=== PATIENT | female | born 1975 | race Caucasian/White ===

== ENCOUNTER 2018-07-18 22:15 | Emergency (ER) | payer MEDICAID ==
[2018-07-18 22:21] VITALS: BP 150/98; PULSE 92; RESP 16; TEMP 98.3; O2SAT 98
[2018-07-18] MEDS ORDERED: Simethicone 80 mg Chewtab PO STA (23:02)
[2018-07-18] MEDS ORDERED: Iohexol 240 (50 ml) PO ONE (23:05)
[2018-07-18] MEDS ORDERED: Iohexol 240 (50 ml) ONE (23:14)
--- NOTE | 2018-07-18 23:17 | ED PDOC ---
HPI: Abdomen Time Seen by Provider: 07/18/18 22:56 Chief Complaint (Nursing): Abdominal Pain Chief Complaint (Provider): abdominal pain History Per: Patient History/Exam Limitations: no limitations Onset/Duration Of Symptoms: Days (x1) Current Symptoms Are (Timing): Still Present Associated Symptoms: Vomiting, Diarrhea, Back Pain (right upper back). denies: Fever, Chills, Urinary Symptoms Additional Complaint(s): Jolene Ivy is a 42 year old female, with a past medical history of HTN and 20lbs ovarian cyst removal x1 year ago, who presents to the emergency department for evaluation of abdominal pain onset for x1 day. Patient states yesterday she started developing pain across her right abdomen into right flank and right upper back. Patient also reports feeling bloated and gassy. She had a normal bowel movement this morning but started having looser bowel movements. She reports vomiting more times that she could count which she describes as non bloody and non bilious. She denies any fever, chills, chest pain, shortness of breath or urinary symptoms. No further medical complaints. PMD: None provided. Past Medical History Reviewed: Historical Data, Nursing Documentation, Vital Signs Vital Signs: Last Vital Signs Temp 98.3 F 07/18/18 22:18 Pulse 92 H 07/18/18 22:18 Resp 16 07/18/18 22:18 BP 150/98 H 07/18/18 22:18 Pulse Ox 98 07/19/18 02:57 - Medical History PMH: Asthma, HTN, Hypercholesterolemia, Rheumatoid Arthritis, Sleep Apnea Denies: Chronic Kidney Disease - Surgical History Surgical History: Cholecystectomy Other surgeries: 20lbs ovarian cyst removal - Family History Family History: States: Unknown Family Hx - Immunization History Hx Tetanus Toxoid Vaccination: No Hx Influenza Vaccination: No Hx Pneumococcal Vaccination: No - Home Medications Home Medications: Ambulatory Orders Medication Instructions Recorded Losartan/Hydrochlorothiazide 100 tab PO DAILY 08/15/14 [Hyzaar 100-25 Tablet] Metoprolol 50 mg PO DAILY 11/25/16 Penicillin VK [Penicillin VK Tab] 500 mg PO Q6H #28 tab 05/13/18 - Allergies Allergies/Adverse Reactions: Allergies Allergy/AdvReac Type Severity Reaction Status Date / Time diazepam [From Valium] Allergy Severe ANGIOEDEMA Verified 07/18/18 22:18 Review of Systems ROS Statement: Except As Marked, All Systems Reviewed And Found Negative Constitutional: Negative for: Fever, Chills Cardiovascular: Negative for: Chest Pain Respiratory: Negative for: Shortness of Breath Gastrointestinal: Positive for: Vomiting, Abdominal Pain, Diarrhea Genitourinary Female: Negative for: Dysuria, Frequency, Incontinence Physical Exam - Reviewed Nursing Documentation Reviewed: Yes Vital Signs Reviewed: Yes - Physical Exam Appears: Positive for: Uncomfortable Head Exam: Positive for: ATRAUMATIC, NORMAL INSPECTION, NORMOCEPHALIC Skin: Positive for: Normal Color, Warm, Dry Eye Exam: Positive for: Normal appearance, EOMI, PERRL Neck: Positive for: Painless ROM Cardiovascular/Chest: Positive for: Regular Rate, Rhythm. Negative for: Murmur Respiratory: Positive for: Normal Breath Sounds. Negative for: Respiratory Distress Gastrointestinal/Abdominal: Positive for: Tenderness (diffused tenderness with minimal palpation to right and left upper quadrants and epigastrium), Distended , Other (midline surgical scar) Back: Positive for: Normal Inspection Extremity: Positive for: Normal ROM (upper and lower extremities). Negative for : Deformity, Swelling Neurologic/Psych: Positive for: Alert, Oriented - Laboratory Results Result Diagrams: 07/18/18 23:30 07/18/18 23:30 - ECG O2 Sat by Pulse Oximetry: 98 (RA) Pulse Ox Interpretation: Normal Medical Decision Making Medical Decision Making: Time: 22:56 A/P: 42 y/o female with history of HTN and recent abdominal surgery presents with abdominal pain, nausea, vomit and diarrhea. Patient appears uncomfortable. Differential diagnosis includes gastroenteritis vs colitis vs diverticulitis vs complication of surgery. Initial Plan: --Abdomen & Pelvis PO & IV Contrast [CT] --CMP --Lipase --Urine --CBC w/ differential --Mylicon Chew Tab 80 mg PO --Omnipaque 250 50 ml PO --Toradol 30 mg IVP --Zofran Inj 4 mg IVP --Urinalysis --reevaluation 01:40 -Patient states she feels much better. Still drinking contrast for CT. 02:53 -This patient is choosing to leave against medical advice. The provider has personally explained to the pt that choosing to do so may result in permanent bodily harm or . The provider discussed at great length that without further evaluation and monitoring there may be unforeseen circumstances and/or deterioration causing permanent bodily harm or as a result of their choice. The pt verbalized these risks back to the physician in laymans terms. The pt is alert , oriented, and shows the mental capacity to make clear decisions regarding the pts health care at this time. The pt continues to wish to leave against medical advice. In light of the pts decision to leave AMA, follow-up has been arranged and the pt is aware of the importance of following up as instructed. The pt has been advised that they should return to the ED immediately if they change their mind at any time, or if their condition begins to change or worsen in any way. ----- Scribe Attestation: Documented by Max Sharma, acting as a scribe for Emre Calderon MD. Provider Scribe Attestation: All medical record entries made by the Scribe were at my direction and personally dictated by me. I have reviewed the chart and agree that the record accurately reflects my personal performance of the history, physical exam, medical decision making, and the department course for this patient. I have also personally directed, reviewed, and agree with the discharge instructions and disposition. Disposition - Clinical Impression Clinical Impression: Abdominal pain in female - Disposition Referrals: Teresa Garcia MD [Family Provider] - Disposition: Against Medical Advice Disposition Time: 02:53 Condition: STABLE Instructions: Nausea and Vomiting, Adult (DC), Leaving Against Medical Advice Forms: [employer] (Romanian)
[2018-07-18 23:39] LABS: BASO # 0.1 K/uL (0.0-0.2); BASO % 0.5 % (0.0-2.0); EOS # 0.1 K/uL (0.0-0.7); EOS % 0.9 % (0.0-4.0); HEMOGLOBIN 13.8 g/dL (12.0-16.0); LYMPH % 22.6 % (20.0-40.0); MEAN CELL VOLUME 84.3 fl (81.0-99.0); MEAN CORPUSCULAR HEMOGLOBIN 28.1 pg (27.0-31.0); MEAN CORPUSCULAR HGB CONC 33.3 g/dL (33.0-37.0); MEAN PLATELET VOLUME 8.1 fl (7.2-11.7); MONO # 0.8 K/uL (0.0-0.8); MONO % 6.4 % (0.0-10.0); NEUT # 9.3 K/uL (1.8-7.0); NEUT % 69.6 % (50.0-75.0); RBC 4.93 Mil/uL (3.80-5.20); RED CELL DISTRIBUTION WIDTH 14.7 % (11.5-14.5); WHITE BLOOD COUNT 13.3 K/uL (4.8-10.8)
[2018-07-18 23:57] LABS: SQUAMOUS EPITHIAL 3 /hpf (0-5); URINE BILIRUBIN NEGATIVE (NEGATIVE); URINE BLOOD NEGATIVE (NEGATIVE); URINE CLARITY SLIGHTY-CLOUDY (Clear); URINE COLOR YELLOW (YELLOW); URINE GLUCOSE (UA) NEG (Normal); URINE LEUKOCYTE ESTERASE NEG Leu/uL (Negative); URINE PROTEIN 30 mg/dL (NEGATIVE); URINE UROBILINOGEN 0.2-1.0 mg/dL (0.2-1.0)
[2018-07-19 00:02] LABS: ALB/GLOB RATIO 1.2 (1.0-2.1); ALT/SGPT 57 U/L (9-52); AST/SGOT 40 U/L (14-36); BLOOD UREA NITROGEN 11 mg/dl (7-17); GFR NON-AFRICAN AMERICAN > 60; LIPASE 119 U/L (23-300)
[2018-07-19] MEDS ORDERED: Iohexol 300 100 ML IJ ONE (02:24)
[2018-07-19] MEDS ORDERED: Sodium Chloride 0.9% 50 ML IV ONE (02:25)
== END 2018-07-19 03:00 | disposition left against medical advice (07) ==
LOC: H.ER 22:15
DX: R10.9 Unspecified abdominal pain (principal); R11.10 Vomiting, unspecified; R19.7 Diarrhea, unspecified; E78.00 Pure hypercholesterolemia, unspecified; I10 Essential (primary) hypertension
CPT/HCPCS: 80053; 81003; 81025; 83690; 85025; 96374; 96375; 99284; J1885; J2405; Q9966; Q9967

== ENCOUNTER 2018-08-20 12:02 | Emergency (ER) | payer MEDICAID ==
[2018-08-20 12:03] VITALS: BMI 34.7
[2018-08-20 12:23] VITALS: O2SAT 98
[2018-08-20] MEDS ORDERED: Albuterol-Ipratrop 3 mg / 0.5 (3 ml) UD INH STA (12:41)
[2018-08-20] MEDS ORDERED: Albuterol-Ipratrop 3 mg / 0.5 (3 ml) UD IH STA (12:41)
--- NOTE | 2018-08-20 13:01 | ED PDOC ---
HPI: SOB/CHF/COPD Time Seen by Provider: 08/20/18 12:31 Chief Complaint (Nursing): Cough, Cold, Congestion Chief Complaint (Provider): Cough, Shortness of Breath History Per: Patient History/Exam Limitations: no limitations Onset/Duration Of Symptoms: Days (x1) Current Symptoms Are (Timing): Still Present Additional Complaint(s): 43 year old female, with a past medical history of asthma and sleep apnea, presenting for evaluation of cough, chest tightness, dizziness and difficulty breathing that worsened today. Patient states she feels like there is phlegm in her chest, but the cough is dry and productive of no sputum. Patient states she was seen at [facility] for same 08/15/2018 and diagnosed with bronchitis. Patient states she was given Prednisone, albuterol, 2x nebulizers and Tessalon Perles with relief of symptoms. Patient states her medication ran out yesterday and her symptoms worsened, prompting her to present to the ED. Patient otherwise denies any fever, chills, nausea, vomiting, headache, chest pain, or urinary complaints. Past Medical History Reviewed: Historical Data, Nursing Documentation, Vital Signs Vital Signs: Last Vital Signs Temp 98.0 F 08/20/18 12:20 Pulse 105 H 08/20/18 12:20 Resp 16 08/20/18 12:20 BP 129/95 H 08/20/18 12:20 Pulse Ox 98 08/20/18 12:20 - Medical History PMH: Asthma, HTN, Hypercholesterolemia, Rheumatoid Arthritis, Sleep Apnea Denies: Chronic Kidney Disease - Surgical History Surgical History: Cholecystectomy - Family History Family History: States: Unknown Family Hx - Immunization History Hx Tetanus Toxoid Vaccination: No Hx Influenza Vaccination: No Hx Pneumococcal Vaccination: No - Home Medications Home Medications: Ambulatory Orders Medication Instructions Recorded Losartan/Hydrochlorothiazide 100 tab PO DAILY 08/15/14 [Hyzaar 100-25 Tablet] Albuterol HFA [Ventolin HFA 90 2 puff IH [id number] #1 inhaler 08/14/18 mcg/actuation (8 g)] Benzonatate [Tessalon Perles] 100 mg PO TID #20 sgl 08/14/18 Cetirizine HCl [Zyrtec] 10 mg PO DAILY #20 capsule 08/14/18 Metoprolol Tartrate 50 mg PO DAILY 08/14/18 amLODIPine [Norvasc] 10 mg PO DAILY 08/14/18 predniSONE [Prednisone] 40 mg PO DAILY #8 tab 08/14/18 Albuterol Sulfate [Proair Hfa] 0.09 mg IH Q6H PRN #2 inh 08/20/18 Benzonatate [Tessalon Perles] 100 mg PO BID PRN 5 Days sgl 08/20/18 Ibuprofen [Motrin] 600 mg PO TID 7 Days tab 08/20/18 predniSONE [predniSONE Tab] 20 mg PO BID 5 Days tab 08/20/18 - Allergies Allergies/Adverse Reactions: Allergies Allergy/AdvReac Type Severity Reaction Status Date / Time diazepam [From Valium] Allergy Severe ANGIOEDEMA Verified 08/20/18 12:20 Review of Systems ROS Statement: Except As Marked, All Systems Reviewed And Found Negative Constitutional: Negative for: Fever, Chills ENT: Positive for: Nose Pain, Nose Discharge, Nose Congestion Cardiovascular: Negative for: Chest Pain Respiratory: Positive for: Cough, Shortness of Breath. Negative for: Sputum Gastrointestinal: Negative for: Nausea, Vomiting, Abdominal Pain, Diarrhea Neurological: Positive for: Dizziness. Negative for: Headache Physical Exam - Reviewed Nursing Documentation Reviewed: Yes Vital Signs Reviewed: Yes - Physical Exam Appears: Positive for: Non-toxic, No Acute Distress Head Exam: Positive for: ATRAUMATIC, NORMAL INSPECTION, NORMOCEPHALIC Skin: Positive for: Normal Color, Warm, Dry. Negative for: Rash Eye Exam: Positive for: EOMI, Normal appearance, PERRL ENT: Positive for: Nasal Congestion Neck: Positive for: Normal, Painless ROM, Supple Cardiovascular/Chest: Positive for: Regular Rate, Rhythm. Negative for: Murmur Respiratory: Positive for: Decreased Breath Sounds, Wheezing (trace end expiration b/l). Negative for: Accessory Muscle Use Gastrointestinal/Abdominal: Positive for: Normal Exam, Soft. Negative for: Tenderness Back: Positive for: Normal Inspection. Negative for: L CVA Tenderness, R CVA Tenderness Extremity: Positive for: Normal ROM. Negative for: Tenderness, Pedal Edema Neurologic/Psych: Positive for: Alert, Oriented. Negative for: Motor/Sensory Deficits - ECG O2 Sat by Pulse Oximetry: 98 (RA) Pulse Ox Interpretation: Normal - Progress ED Course And Treament: 1357: Stable. AAOx3. Feels better. Will give 1 more course of prednisone and albuterol. Fu with pcp. Medical Decision Making Medical Decision Makin Plan: -Duoneb 3mL INH x2 -Motrin 600mg PO -Tessalon Perles 100mg PO -Prednisone 60mg PO -Peak flow treatment -Reevaluation Scribe Attestation: Documented by Patrick Rendon, acting as a scribe for Carlos Howard MD. Provider Scribe Attestation: All medical record entries made by the Scribe were at my direction and personally dictated by me. I have reviewed the chart and agree that the record accurately reflects my personal performance of the history, physical exam, medical decision making, and the department course for this patient. I have also personally directed, reviewed, and agree with the discharge instructions and disposition. Disposition - Clinical Impression Clinical Impression: Bronchitis - Patient ED Disposition Is Patient to be Admitted: No Counseled Patient/Family Regarding: Studies Performed, Diagnosis, Need For Followup, Rx Given - Disposition Referrals: [facility] [Outside] - 08/21/18 Disposition: Routine/Home Disposition Time: 13:58 Condition: STABLE Additional Instructions: Return if not better in 3 days. Prescriptions: Albuterol Sulfate [Proair Hfa] 0.09 mg IH Q6H PRN #2 inh PRN Reason: Wheezing Benzonatate [Tessalon Perles] 100 mg PO BID PRN 5 Days sgl PRN Reason: Cough Ibuprofen [Motrin] 600 mg PO TID 7 Days tab predniSONE [predniSONE Tab] 20 mg PO BID 5 Days tab Instructions: Acute Bronchitis Forms: [facility] (Portuguese), [facility] ED School/Work Excuse
[2018-08-20] MEDS ORDERED: Albuterol-Ipratrop 3 mg / 0.5 (3 ml) UD ONE (13:03)
[2018-08-20 14:24] VITALS: BP 100/70; PULSE 74; RESP 20; TEMP 98
== END 2018-08-20 14:24 | disposition home or self-care (01) ==
LOC: H.ER 12:02
DX: J40 Bronchitis, not specified as acute or chronic (principal); E78.00 Pure hypercholesterolemia, unspecified; G47.30 Sleep apnea, unspecified; I10 Essential (primary) hypertension; M06.9 Rheumatoid arthritis, unspecified

== ENCOUNTER 2018-11-09 17:26 | Emergency (ER) | payer MEDICAID ==
[2018-11-09 17:26] VITALS: BMI 34.7
[2018-11-09] MEDS ORDERED: Oxycodone/Acetaminophen 5/325 mg Tab PO STA (18:02)
[2018-11-09 18:06] VITALS: RESP 18
[2018-11-09 19:04] VITALS: O2SAT 98
--- NOTE | 2018-11-09 19:26 | ED PDOC ---
HPI: Back Time Seen by Provider: 11/09/18 18:15 Chief Complaint (Nursing): Back Pain Chief Complaint (Provider): chronic back pain History Per: Patient History/Exam Limitations: no limitations Onset/Duration Of Symptoms: Hrs (four) Current Symptoms Are (Timing): Still Present Quality Of Discomfort: Unable To Describe, Dull, Aching, "Pain" Severity: None Previous Symptoms: Back Pain Additional Complaint(s): Pt presents to the ED with a chronic history of back pain and specifically sciatic pain. She complains of right sided back pain with radiation through her glutteus and to her right knee. Pt is morbidly obese and also a diabetic. She is hypertensive on presentation. Past Medical History Vital Signs: Last Vital Signs Temp 98.5 F 11/09/18 17:34 Pulse 87 11/09/18 19:04 Resp 18 11/09/18 19:04 BP 148/97 H 11/09/18 19:04 Pulse Ox 98 11/09/18 19:04 - Medical History PMH: Asthma, HTN, Hypercholesterolemia, Rheumatoid Arthritis, Sleep Apnea Denies: Chronic Kidney Disease - Surgical History Surgical History: Cholecystectomy - Family History Family History: States: Unknown Family Hx - Immunization History Hx Tetanus Toxoid Vaccination: No Hx Influenza Vaccination: No Hx Pneumococcal Vaccination: No - Home Medications Home Medications: Ambulatory Orders Medication Instructions Recorded Losartan/Hydrochlorothiazide 100 tab PO DAILY 08/15/14 [Hyzaar 100-25 Tablet] Albuterol HFA [Ventolin HFA 90 2 puff IH [id number] #1 inhaler 08/14/18 mcg/actuation (8 g)] Cetirizine HCl [Zyrtec] 10 mg PO DAILY #20 capsule 08/14/18 Metoprolol Tartrate 50 mg PO DAILY 08/14/18 amLODIPine [Norvasc] 10 mg PO DAILY 08/14/18 Ibuprofen [Motrin] 600 mg PO TID 7 Days tab 08/20/18 Loratadine [Claritin] 10 mg PO DAILY #10 tab 11/06/18 predniSONE [Prednisone] 20 mg PO BID #10 tab 11/06/18 Cyclobenzaprine [Flexeril] 10 mg PO TID #27 tab 11/09/18 - Allergies Allergies/Adverse Reactions: Allergies Allergy/AdvReac Type Severity Reaction Status Date / Time diazepam [From Valium] Allergy Severe ANGIOEDEMA Verified 11/06/18 00:15 Physical Exam - Reviewed Nursing Documentation Reviewed: Yes Vital Signs Reviewed: Yes - Physical Exam Appears: Positive for: Non-toxic, Uncomfortable Head Exam: Positive for: ATRAUMATIC Skin: Positive for: Normal Color, Warm, Dry Eye Exam: Positive for: Normal appearance Neck: Positive for: Normal, Painless ROM, Supple. Negative for: Decreased ROM Cardiovascular/Chest: Positive for: Regular Rate, Rhythm. Negative for: Chest Non Tender, Bradycardia, Tachycardia Respiratory: Positive for: Normal Breath Sounds. Negative for: Decreased Breath Sounds, Accessory Muscle Use, Crackles, Rales, Rhonchi, Stridor, Wheezing, Respiratory Distress Pulses-Carotid (L): 2+ Pulses-Carotid (R): 2+ Back: Positive for: Normal Inspection, L CVA Tenderness, R CVA Tenderness, Muscle Spasm (significant lumbosacral spasm) - ECG O2 Sat by Pulse Oximetry: 98 Medical Decision Making Medical Decision Making: lumbar spine negative pt treated with toradol, percocet 5mg and flexeril urged to follow up with PMD fft consult with pain managment specialist Disposition - Clinical Impression Clinical Impression: Back pain, Chronic back pain - Patient ED Disposition Is Patient to be Admitted: No Doctor Will See Patient In The: Office - Disposition Disposition Time: 19:41 Condition: STABLE Additional Instructions: Follow up with PMD for further referral to pain managment Prescriptions: Cyclobenzaprine [Flexeril] 10 mg PO TID #27 tab Instructions: Chronic Pain (DC), Chronic Pain Forms: [employer] (Upper Sorbian)
[2018-11-09 20:18] VITALS: BP 138/86; PULSE 89; TEMP 97.8
--- NOTE | 2018-11-10 11:12 | RAD ---
Date of service: 11/09/2018 PROCEDURE: Radiographs of the Lumbar Spine. HISTORY: severe back pain- lowr COMPARISON: No prior. FINDINGS: BONES: There is normal alignment of the lumbar vertebral bodies. There is normal lumbar lordosis. No acute fracture or spondylolysis. Bone mineralization is normal. DISC SPACES: There is mild degenerative disc disease at L4-5 and L5-S1 with anterior spurring, mild reduced disc heights and facet arthropathy, worse at L5-S1. OTHER FINDINGS: No pathologic soft tissue calcifications. Both sacroiliac joints are normal. Surgical clips in the right upper quadrant are related to prior cholecystectomy. IMPRESSION: No acute fracture, spondylolysis or spondylolisthesis. Mild degenerative disc disease at L4-5 and L5-S1, worse at L5-S1.
== END 2018-11-09 20:23 | disposition home or self-care (01) ==
LOC: H.ER 17:26
DX: M54.9 Dorsalgia, unspecified (principal)
CPT/HCPCS: 72114; 81025; 96372; 99283; J1885

== ENCOUNTER 2018-11-12 05:51 | Emergency (ER) | payer MEDICAID ==
[2018-11-12 05:52] VITALS: BMI 34.7
[2018-11-12] MEDS ORDERED: Albuterol 0.083% Inhal Sol (2.5 mg/3 mL) UD INH ONE (06:44)
[2018-11-12] MEDS ORDERED: Albuterol 0.083% Inhal Sol (2.5 mg/3 mL) UD ONE (06:51)
--- NOTE | 2018-11-12 06:51 | ED PDOC ---
HPI: Influenza Time Seen by Provider: 11/12/18 06:00 Chief Complaint: Cough, Cold, Congestion Chief Complaint (Provider): Cough, Chills History Per: Patient Exam Limitations: no limitations Onset/Duration Of Symptoms: Days (x1 week) Additional complaint(s):: 43 year old female with hx of asthma presents to the ED for evaluation of a cough productive of yellow/green phlegm associated with chills for the past week. At onset, patient went to [facility] where she was given prednisone, allergy medication, tesslon pearls, and albuterol, but she notes her symptoms have been worsening since discharge. Otherwise denies fever and diarrhea. PMD: Teresa Garcia Past Medical History Reviewed: Historical Data, Nursing Documentation, Vital Signs Vital Signs: Last Vital Signs Temp 98.7 F 11/12/18 06:18 Pulse 98 H 11/12/18 06:18 Resp 17 11/12/18 06:18 BP 162/110 H 11/12/18 06:18 Pulse Ox 99 11/12/18 06:18 - Medical History PMH: Asthma, HTN, Hypercholesterolemia, Rheumatoid Arthritis, Sleep Apnea Denies: Chronic Kidney Disease - Surgical History Surgical History: Cholecystectomy, Other surgeries: hysterectomy - Family History Family History: States: Unknown Family Hx - Social History Current smoker - smoking cessation education provided: No Alcohol: None Drugs: Denies - Immunization History Hx Tetanus Toxoid Vaccination: No Hx Influenza Vaccination: No Hx Pneumococcal Vaccination: No - Home Medications Home Medications: Ambulatory Orders Medication Instructions Recorded RX: Losartan/Hydrochlorothiazide 100 tab PO DAILY 08/15/14 [Hyzaar 100-25 Tablet] Cetirizine HCl [Zyrtec] 10 mg PO DAILY #20 capsule 08/14/18 RX: Albuterol HFA [Ventolin HFA 90 2 puff IH [id number] #1 inhaler 08/14/18 mcg/actuation (8 g)] RX: Metoprolol Tartrate 50 mg PO DAILY 08/14/18 amLODIPine [Norvasc] 10 mg PO DAILY 08/14/18 Ibuprofen [Motrin] 600 mg PO TID 7 Days tab 08/20/18 RX: Loratadine [Claritin] 10 mg PO DAILY #10 tab 11/06/18 predniSONE [Prednisone] 20 mg PO BID #10 tab 11/06/18 RX: Cyclobenzaprine [Flexeril] 10 mg PO TID #27 tab 11/09/18 Albuterol 0.083% [Albuterol 3 ml IH Q8 #1 neb 11/12/18 Sulfate 3 Ml] Promethazine/Codeine 5 ml PO Q8 #60 ml 11/12/18 [Codeine/Promethazine 10 MG/5 Ml-6.25 MG/5 Ml] RX: Non-Formulary 1 ea .ROUTE Q6 #1 ea 11/12/18 - Allergies Allergies/Adverse Reactions: Allergies Allergy/AdvReac Type Severity Reaction Status Date / Time diazepam [From Valium] Allergy Severe ANGIOEDEMA Verified 11/12/18 06:20 Review of Systems ROS Statement: Except As Marked, All Systems Reviewed And Found Negative Constitutional: Positive for: Chills. Negative for: Fever Respiratory: Positive for: Cough (productive of yellow/green phlegm) Gastrointestinal: Negative for: Diarrhea Physical Exam - Reviewed Nursing Documentation Reviewed: Yes Vital Signs Reviewed: Yes - Physical Exam Appears: Positive for: No Acute Distress Head Exam: Positive for: ATRAUMATIC, NORMOCEPHALIC Skin: Positive for: Normal Color, Warm Eye Exam: Positive for: Normal appearance ENT: Positive for: Normal ENT Inspection Neck: Positive for: Normal, Painless ROM, Supple Cardiovascular/Chest: Positive for: Regular Rate, Rhythm Respiratory: Positive for: Normal Breath Sounds. Negative for: Crackles, Rales, Rhonchi, Wheezing, Respiratory Distress Gastrointestinal/Abdominal: Positive for: Normal Exam, Soft. Negative for: Tenderness Extremity: Positive for: Normal ROM Neurologic/Psych: Positive for: Alert, Oriented (x3). Negative for: Motor/Sensory Deficits Medical Decision Making Medical Decision Making: Time: 642 Initial Impression: COUGH r/o pneumonia and flu Initial Plan: --CXR --Albuterol 2.5mg INH --Tylenol 650mg PO --Peak flow pre/post --Influenza A B Scribe Attestation: Documented by Lakshmi Bill acting as a scribe for Екатерина Zhou MD. Provider Scribe Attestation: All medical record entries made by the Scribe were at my direction and personally dictated by me. I have reviewed the chart and agree that the record accurately reflects my personal performance of the history, physical exam, medical decision making, and the department course for this patient. I have also personally directed, reviewed, and agree with the discharge instructions and disposition. - ECG O2 Sat by Pulse Oximetry: 99 (RA) Pulse Ox Interpretation: Normal Disposition - Clinical Impression Clinical Impression: Chronic cough, Upper respiratory infection - Patient ED Disposition Is Patient to be Admitted: Transfer of Care - Disposition Referrals: [facility] [Outside] Disposition: Transfer of Care Disposition Time: 07:00 Condition: FAIR Prescriptions: Albuterol 0.083% [Albuterol Sulfate 3 Ml] 3 ml IH Q8 #1 neb RX: Non-Formulary 1 ea .ROUTE Q6 #1 ea Promethazine/Codeine [Codeine/Promethazine 10 MG/5 Ml-6.25 MG/5 Ml] 5 ml PO Q8 #60 ml Instructions: Cough in Adults, Viral Upper Respiratory Infection, Adult (DC) Forms: [employer] (Telugu) Print Language: ENGLISH Patient Signed Over To: Benny Lozoya
--- NOTE | 2018-11-12 08:17 | RAD ---
Date of service: 11/12/2018 HISTORY: cough COMPARISON: 08/03/2015 TECHNIQUE: Chest PA and lateral FINDINGS: LUNGS: No active pulmonary disease. PLEURA: No significant pleural effusion identified. No pneumothorax apparent. CARDIOVASCULAR: There is absence of aortic atherosclerotic calcification on x-ray. Probable top-normal heart size. No pulmonary vascular congestion. OSSEOUS STRUCTURES: Thoracic spondylosis noted. VISUALIZED UPPER ABDOMEN: Normal. OTHER FINDINGS: None. IMPRESSION: No active disease. No interval pathology noted.
[2018-11-12 09:18] VITALS: RESP 18
--- NOTE | 2018-11-12 09:18 | ED PDOC ---
- ECG O2 Sat by Pulse Oximetry: 98 Medical Decision Making Medical Decision Making: CXR reveals no acute pathology. Flu neg Will dc home on albuterol and phenergan for cough Disposition - Clinical Impression Clinical Impression: Chronic cough, Upper respiratory infection - POA Present On Arrival: None - Disposition Referrals: [facility] [Outside] Disposition: Routine/Home Disposition Time: 09:16 Condition: FAIR Prescriptions: Albuterol 0.083% [Albuterol Sulfate 3 Ml] 3 ml IH Q8 #1 neb Non-Formulary 1 ea .ROUTE Q6 #1 ea Promethazine/Codeine [Codeine/Promethazine 10 MG/5 Ml-6.25 MG/5 Ml] 5 ml PO Q8 #60 ml Instructions: Viral Upper Respiratory Infection, Adult (DC), Cough in Adults Forms: [facility] (Sami) Print Language: KHMER
[2018-11-12 09:32] VITALS: BP 147/90; PULSE 88; TEMP 98.6
[2018-11-13 23:06] VITALS: O2SAT 99
--- NOTE | 2018-11-14 13:47 | CARD ---
APPROVED REPORT Date of service: 11/12/2018 EKG Measurement Heart [id number] <Conclusion> Normal sinus rhythm Incomplete right bundle branch block Otherwise normal ECG
== END 2018-11-12 09:33 | disposition home or self-care (01) ==
LOC: H.ER 05:51
DX: J06.9 Acute upper respiratory infection, unspecified (principal); E78.00 Pure hypercholesterolemia, unspecified; I10 Essential (primary) hypertension

== ENCOUNTER 2018-11-21 20:10 | Emergency (ER) | payer MEDICAID ==
[2018-11-21 20:10] VITALS: BMI 34.7
== END 2018-11-21 20:20 | disposition left against medical advice (07) ==
LOC: H.ER 20:10
DX: Z02.89 Encounter for other administrative examinations (principal)

== ENCOUNTER 2018-11-21 21:21 | Emergency (ER) | payer MEDICAID ==
[2018-11-21 21:21] VITALS: BMI 34.7
[2018-11-21 21:42] VITALS: TEMP 98.9
[2018-11-21] MEDS ORDERED: Fluconazole 150 MG TAB PO STA (22:32)
--- NOTE | 2018-11-21 22:36 | ED PDOC ---
HPI: Female Pain Time Seen by Provider: 11/21/18 22:05 Chief Complaint (Nursing): Female Genitourinary Chief Complaint (Provider): vaginal irritation History Per: Patient History/Exam Limitations: no limitations Onset/Duration Of Symptoms: Days (3) Current Symptoms Are (Timing): Still Present Additional Complaint(s): 43 y/o female presents for evaluation of vaginal irritation x 3 days. Patient reports itching and burning to vaginal area. Patient states she has been using a new toilet paper, unknown if related. Has been applying lubricant with little improvement. DEnies fever, nausea/vomiting, abdominal pain, pelvic pain, vaginal bleeding/discharge. Patient states she recently had both her ovaries removed and was told she may need to go on external hormone replacement. Past Medical History Reviewed: Historical Data, Nursing Documentation, Vital Signs Vital Signs: Last Vital Signs Temp 98.9 F 11/21/18 21:40 Pulse 106 H 11/21/18 21:40 Resp 20 11/21/18 21:40 BP 171/92 H 11/21/18 21:40 Pulse Ox 97 11/21/18 21:40 - Medical History PMH: Asthma, HTN, Hypercholesterolemia, Rheumatoid Arthritis, Sleep Apnea Denies: Chronic Kidney Disease - Surgical History Surgical History: Cholecystectomy, - Family History Family History: States: Unknown Family Hx - Immunization History Hx Tetanus Toxoid Vaccination: No Hx Influenza Vaccination: No Hx Pneumococcal Vaccination: No - Home Medications Home Medications: Ambulatory Orders Medication Instructions Recorded Losartan/Hydrochlorothiazide 100 tab PO DAILY 08/15/14 [Hyzaar 100-25 Tablet] Albuterol HFA [Ventolin HFA 90 2 puff IH [id number] #1 inhaler 08/14/18 mcg/actuation (8 g)] Cetirizine HCl [Zyrtec] 10 mg PO DAILY #20 capsule 08/14/18 Metoprolol Tartrate 50 mg PO DAILY 08/14/18 amLODIPine [Norvasc] 10 mg PO DAILY 08/14/18 Ibuprofen [Motrin] 600 mg PO TID 7 Days tab 08/20/18 Loratadine [Claritin] 10 mg PO DAILY #10 tab 11/06/18 predniSONE [Prednisone] 20 mg PO BID #10 tab 11/06/18 Cyclobenzaprine [Flexeril] 10 mg PO TID #27 tab 11/09/18 Albuterol 0.083% [Albuterol 3 ml IH Q8 #1 neb 11/12/18 Sulfate 3 Ml] Non-Formulary 1 ea .ROUTE Q6 #1 ea 11/12/18 Promethazine/Codeine 5 ml PO Q8 #60 ml 11/12/18 [Codeine/Promethazine 10 MG/5 Ml-6.25 MG/5 Ml] metFORMIN [glucOPHAGE] 500 mg PO BID #28 tab 11/22/18 - Allergies Allergies/Adverse Reactions: Allergies Allergy/AdvReac Type Severity Reaction Status Date / Time diazepam [From Valium] Allergy Severe ANGIOEDEMA Verified 11/21/18 21:40 Review of Systems ROS Statement: Except As Marked, All Systems Reviewed And Found Negative Genitourinary Female: Positive for: Rash Physical Exam - Reviewed Nursing Documentation Reviewed: Yes Vital Signs Reviewed: Yes - Physical Exam Appears: Positive for: Well, Non-toxic, No Acute Distress Cardiovascular/Chest: Positive for: Regular Rate, Rhythm Respiratory: Positive for: Normal Breath Sounds Gastrointestinal/Abdominal: Positive for: Normal Exam Pelvic Exam: Positive for: No Cerv. 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 Negative for: External Exam Normal (bilateral labia minora dry, erythematous. No excoriations, lesions, discharge noted), Active Bleeding, Blood, Cervicitis Extremity: Positive for: Normal ROM Neurologic/Psych: Positive for: Alert, Oriented - Laboratory Results Result Diagrams: 11/21/18 23:00 11/21/18 23:00 - ECG O2 Sat by Pulse Oximetry: 97 - Progress ED Course And Treament: -upreg -udip -diflucan PO glucose>1000 in urine; accucheck ordered accucheck 396: cbc cmp IV NS bolus ordered repeat Accucehck 389; second IV NS bolus ordered repeat accucheck 281 Patient educated on findings, rx Metformin provided Advised OTC A%D ointment for protective barrier/lubricant Follow up PMD and Dye Can Operator within 2-3 days Diet modification Return precautions given Disposition - Clinical Impression Clinical Impression: Vaginitis, Hyperglycemia - Patient ED Disposition Is Patient to be Admitted: No Counseled Patient/Family Regarding: Studies Performed, Diagnosis, Need For Followup - Disposition Disposition: Routine/Home Disposition Time: 22:40 Condition: IMPROVED Prescriptions: metFORMIN [glucOPHAGE] 500 mg PO BID #28 tab Instructions: Vaginitis, Hyperglycemia, Adult
[2018-11-21] MEDS ORDERED: Fluconazole 150 MG TAB PO ONE (22:39)
[2018-11-21] MEDS ORDERED: Sodium Chloride 0.9% 1,000 ML IV STA (22:47)
[2018-11-22 00:47] LABS: BASO # 0.1 K/uL (0.0-0.2); BASO % 1.2 % (0.0-2.0); EOS # 0.1 K/uL (0.0-0.7); EOS % 1.1 % (0.0-4.0); HEMOGLOBIN 14.8 g/dL (12.0-16.0); LYMPH # 3.5 K/uL (1.0-4.3); LYMPH % 35.7 % (20.0-40.0); MEAN CELL VOLUME 85.7 fl (81.0-99.0); MEAN CORPUSCULAR HEMOGLOBIN 28.8 pg (27.0-31.0); MEAN CORPUSCULAR HGB CONC 33.6 g/dL (33.0-37.0); MEAN PLATELET VOLUME 9.9 fl (7.2-11.7); MONO # 0.5 K/uL (0.0-0.8); MONO % 4.6 % (0.0-10.0); NEUT # 5.6 K/uL (1.8-7.0); NEUT % 57.4 % (50.0-75.0); NRBC % 0.1 % (0.0-0.0); RBC 5.12 Mil/uL (3.80-5.20); RED CELL DISTRIBUTION WIDTH 15.1 % (11.5-14.5); WHITE BLOOD COUNT 9.8 K/uL (4.8-10.8)
[2018-11-22 01:08] LABS: ALB/GLOB RATIO 1.3 (1.0-2.1); ALT/SGPT 60 U/L (9-52); AST/SGOT 36 U/L (14-36); BLOOD UREA NITROGEN 12 mg/dl (7-17); CALCIUM 9.5 mg/dL (8.4-10.2); GFR NON-AFRICAN AMERICAN > 60
[2018-11-22] MEDS ORDERED: Sodium Chloride 0.9% 1,000 ML IV STA (01:08)
[2018-11-22 01:27] VITALS: BP 155/95; PULSE 92; RESP 17
[2018-11-22 02:38] VITALS: O2SAT 97
== END 2018-11-22 02:53 | disposition home or self-care (01) ==
LOC: H.ER 21:21
DX: N76.0 Acute vaginitis (principal); R73.9 Hyperglycemia, unspecified; E78.00 Pure hypercholesterolemia, unspecified; I10 Essential (primary) hypertension
CPT/HCPCS: 80053; 81025; 82948; 85025; 96360; 99284; J7030

== ENCOUNTER 2019-02-16 00:32 | Emergency (ER) | payer MEDICAID ==
[2019-02-16 00:41] VITALS: BMI 35.1
[2019-02-16 00:46] VITALS: TEMP 99
[2019-02-16] MEDS ORDERED: Sodium Chloride 0.9% 1,000 ML IV STA (01:02)
[2019-02-16 01:40] LABS: BASO # 0.1 K/uL (0.0-0.2); BASO % 0.6 % (0.0-2.0); EOS % 0.2 % (0.0-4.0); HEMOGLOBIN 15.1 g/dL (12.0-16.0); LYMPH # 1.5 K/uL (1.0-4.3); LYMPH % 8.9 % (20.0-40.0); MEAN CELL VOLUME 84.8 fl (81.0-99.0); MEAN CORPUSCULAR HEMOGLOBIN 28.9 pg (27.0-31.0); MEAN CORPUSCULAR HGB CONC 34.1 g/dL (33.0-37.0); MONO # 0.4 K/uL (0.0-0.8); MONO % 2.4 % (0.0-10.0); NEUT # 15.1 K/uL (1.8-7.0); NEUT % 87.9 % (50.0-75.0); NRBC % 0.1 % (0.0-0.0); PLATELET COUNT 311 K/uL (130-400); RBC 5.21 Mil/uL (3.80-5.20); RED CELL DISTRIBUTION WIDTH 14.6 % (11.5-14.5); WHITE BLOOD COUNT 17.2 K/uL (4.8-10.8)
[2019-02-16 01:47] LABS: ALB/GLOB RATIO 1.2 (1.0-2.1); ALBUMIN 4.4 g/dL (3.5-5.0); ALT/SGPT 62 U/L (9-52); AST/SGOT 47 U/L (14-36); BLOOD UREA NITROGEN 17 mg/dl (7-17); CALCIUM 10.1 mg/dL (8.4-10.2); GFR NON-AFRICAN AMERICAN > 60; LIPASE 79 U/L (23-300)
[2019-02-16] MEDS ORDERED: Iohexol 300 100 ML IJ ONE (02:07)
[2019-02-16] MEDS ORDERED: Sodium Chloride 0.9% 50 ML IV ONE (02:08)
--- NOTE | 2019-02-16 02:17 | ED PDOC ---
HPI: Abdomen Time Seen by Provider: 02/16/19 00:39 Chief Complaint (Nursing): Abdominal Pain Chief Complaint (Provider): Abdominal Pain History Per: Patient History/Exam Limitations: no limitations Onset/Duration Of Symptoms: Hrs (3) Associated Symptoms: Nausea, Vomiting Additional Complaint(s): 43 y/o female with history of ovarian cyst and multiple abdominal surgeries presents with abdominal pain, onset x3 hours prior to arrival. Patient reports acute onset of pain that is right sided. Symptoms are associated with nausea and 2 episodes of non bloody non bilious vomiting. Denies fever, diarrhea, vaginal bleeding, or vaginal discharge. Past Medical History Reviewed: Historical Data, Nursing Documentation, Vital Signs Vital Signs: Last Vital Signs Temp 99.0 F 02/16/19 00:41 Pulse 81 02/16/19 00:41 Resp 18 02/16/19 00:41 BP 129/81 02/16/19 00:41 Pulse Ox 98 02/16/19 00:41 - Medical History PMH: Asthma, HTN, Hypercholesterolemia, Rheumatoid Arthritis, Sleep Apnea Denies: Chronic Kidney Disease Other PMH: ovarian cyst - Surgical History Surgical History: Cholecystectomy, Other surgeries: Oophorectomy - Family History Family History: States: Unknown Family Hx - Social History Current smoker - smoking cessation education provided: No Alcohol: None Drugs: Denies - Immunization History Hx Tetanus Toxoid Vaccination: No Hx Influenza Vaccination: No Hx Pneumococcal Vaccination: No - Home Medications Home Medications: Ambulatory Orders Medication Instructions Recorded Losartan/Hydrochlorothiazide 100 tab PO DAILY 08/15/14 [Hyzaar 100-25 Tablet] Albuterol HFA [Ventolin HFA 90 2 puff IH [id number] #1 inhaler 08/14/18 mcg/actuation (8 g)] Cetirizine HCl [Zyrtec] 10 mg PO DAILY #20 capsule 08/14/18 Metoprolol Tartrate 50 mg PO DAILY 08/14/18 amLODIPine [Norvasc] 10 mg PO DAILY 08/14/18 Ibuprofen [Motrin] 600 mg PO TID 7 Days tab 08/20/18 Loratadine [Claritin] 10 mg PO DAILY #10 tab 11/06/18 predniSONE [Prednisone] 20 mg PO BID #10 tab 11/06/18 Cyclobenzaprine [Flexeril] 10 mg PO TID #27 tab 11/09/18 Albuterol 0.083% [Albuterol 3 ml IH Q8 #1 neb 11/12/18 Sulfate 3 Ml] Non-Formulary 1 ea .ROUTE Q6 #1 ea 11/12/18 Promethazine/Codeine 5 ml PO Q8 #60 ml 11/12/18 [Codeine/Promethazine 10 MG/5 Ml-6.25 MG/5 Ml] metFORMIN [glucOPHAGE] 500 mg PO BID #28 tab 11/22/18 Ciprofloxacin [Cipro] 500 mg PO Q12 #14 tab 02/16/19 Dicyclomine [Bentyl] 20 mg PO Q12 PRN #20 tab 02/16/19 metroNIDAZOLE [Flagyl] 500 mg PO Q12 #14 tab 02/16/19 - Allergies Allergies/Adverse Reactions: Allergies Allergy/AdvReac Type Severity Reaction Status Date / Time diazepam [From Valium] Allergy Severe ANGIOEDEMA Verified 02/16/19 00:41 Review of Systems Constitutional: Negative for: Fever Gastrointestinal: Positive for: Nausea, Vomiting, Abdominal Pain. Negative for: Diarrhea Genitourinary Female: Negative for: Vaginal Discharge, Vaginal Bleeding Physical Exam - Reviewed Nursing Documentation Reviewed: Yes Vital Signs Reviewed: Yes - Physical Exam Appears: Positive for: Well, Non-toxic, No Acute Distress Head Exam: Positive for: ATRAUMATIC, NORMAL INSPECTION, NORMOCEPHALIC Skin: Positive for: Normal Color, Warm, DRY Eye Exam: Positive for: EOMI, Normal appearance, PERRL ENT: Positive for: Normal ENT Inspection Neck: Positive for: Normal, Painless ROM Cardiovascular/Chest: Positive for: Regular Rate, Rhythm. Negative for: Murmur Respiratory: Positive for: Normal Breath Sounds. Negative for: Respiratory Distress Gastrointestinal/Abdominal: Positive for: Tenderness (mild right mid) Back: Positive for: Normal Inspection Extremity: Positive for: Normal ROM. Negative for: Pedal Edema, Deformity Neurological/Psych: Positive for: Awake, Alert, Normal Tone. Negative for: Motor/Sensory Deficits - Laboratory Results Result Diagrams: 02/16/19 01:35 02/16/19 01:35 Lab Results: Total Bilirubin 0.4 mg/dl (0.2-1.3) 02/16/19 01:35 AST 47 U/L (14-36) H D 02/16/19 01:35 ALT 62 U/L (9-52) H 02/16/19 01:35 Alkaline Phosphatase 182 U/L (38-126) H D 02/16/19 01:35 Total Protein 8.1 G/DL (6.3-8.2) 02/16/19 01:35 Albumin 4.4 g/dL (3.5-5.0) 02/16/19 01:35 Globulin 3.7 gm/dL (2.2-3.9) 02/16/19 01:35 Albumin/Globulin Ratio 1.2 (1.0-2.1) 02/16/19 01:35 Lipase 79 U/L (23-300) 02/16/19 01:35 - ECG O2 Sat by Pulse Oximetry: 98 (RA) Pulse Ox Interpretation: Normal Medical Decision Making Medical Decision Making: Time: 01:01 Impression: 43 y/o with right sided tenderness in setting of multiple surgeries Initial Plan: * CT Abdomen Pelvis * Labs * IV Fluids * Toradol * Zofran 04:01 CT Abd Pelvis COMMENTS: Fluid-filled stomach. Fluid-filled small bowels. Diffuse thickening of the cecum and ascending colon suggestive of uncomplicated colitis. Resolution of bilateral ovarian cysts. The liver is moderately enlarged with decreased attenuation without mass or defect. There is no intra or extrahepatic biliary ductal dilatation. The spleen is normal. The gallbladder is surgically absent. The pancreas is of normal contour and attenuation characteristics. There is no evidence of adrenal mass. Both kidneys demonstrate prompt and equal nephrograms. The kidneys are normal in size, shape and configuration. There is no evidence of renal or ureteral mass. No renal or ureteral calculi are identified. There is no hydroureter or hydronephrosis. No evidence for appendicitis. No evidence for small or large bowel obstruction. There is no evidence of abdominal ascites or lymphadenopathy. There is no evidence of intrinsic or extrinsic bladder mass. There is no pelvic ascites or lymphadenopathy. Images of the lung bases show no evidence of pleural or parenchymal mass. There are no pleural effusions. The bony structures are free of lytic or blastic lesions. IMPRESSION: Uncomplicated enterocolitis. 06:22 Patient reports marked improvement of symptoms. Provider offered to put patient on observation which patient declined and feels comfortable for outpatient trial of treatment. Diagnosis is colitis. Return precautions provided. Scribe Attestation: Documented by Fredo Holm, acting as a scribe Madi Conde MD Provider Scribe Attestation: All medical record entries made by the Scribe were at my direction and personally dictated by me. I have reviewed the chart and agree that the record accurately reflects my personal performance of the history, physical exam, medical decision making, and the department course for this patient. I have also personally directed, reviewed, and agree with the discharge instructions and disposition Disposition - Clinical Impression Clinical Impression: Colitis - Disposition Referrals: Teresa Garcia MD [Primary Care Provider] - Disposition: Routine/Home Disposition Time: 06:22 Condition: STABLE Additional Instructions: SANDY JONES, thank you for letting us take care of you today. Your provider was Stefan Conde MD and you were treated for ABD PAIN,VOMITING. The emergency medical care you received today was directed at your acute symptoms. If you were prescribed any medication, please fill it and take as directed. It may take several days for your symptoms to resolve. Return to the Emergency Department if your symptoms worsen, do not improve, or if you have any other problems. Please contact your doctor or call one of the physicians/clinics you have been referred to that are listed on the Patient Visit Information form that is inc luded in your discharge packet. Bring any paperwork you were given at discharge with you along with any medications you are taking to your follow up visit. Our treatment cannot replace ongoing medical care by a primary care provider outside of the emergency department. Thank you for allowing the [facility] team to be part of your care today. If you had an X-Ray or CT scan: A Radiologist will review the ED reading if any change in treatment is needed we will contact you. If you had a blood, urine, or wound culture: It will take several days for the results, if any change in treatment is needed we will contact you. If you had an STI test: It will take 48 hours for the results. Please call after 1 week if you have not heard back. Prescriptions: Ciprofloxacin [Cipro] 500 mg PO Q12 #14 tab Dicyclomine [Bentyl] 20 mg PO Q12 PRN #20 tab PRN Reason: abdominal pain/diarrhea metroNIDAZOLE [Flagyl] 500 mg PO Q12 #14 tab Instructions: Colitis Forms: [facility] (Hebrew)
[2019-02-16 02:32] LABS: BANDS 6 % (0-2); GIANT PLATELETS PRESENT; LYMPHOCYTE 8 % (20-50); MONOCYTE 3 % (0-10); NEUTROPHIL 83 % (42-75); PLATELET ESTIMATE NORMAL (NORMAL); TOTAL CELLS COUNTED 100
[2019-02-16] MEDS ORDERED: Ciprofloxacin 400mg/200ml D5W 400 MG/200 ML BAG IV STA (05:21)
[2019-02-16] MEDS ORDERED: metroNIDAZOLE 500mg/100ml NS 100 ML IVPB STA (05:22)
[2019-02-16] MEDS ORDERED: Ciprofloxacin 400mg/200ml D5W 400 MG/200 ML BAG IVPB ONE (05:40)
[2019-02-16] MEDS ORDERED: metroNIDAZOLE 500mg/100ml NS 100 ML IVPB ONE (05:40)
[2019-02-16 07:33] VITALS: RESP 18
[2019-02-16 08:58] VITALS: BP 127/87; PULSE 92; O2SAT 98
--- NOTE | 2019-02-16 12:50 | CT ---
Date of service: 02/16/2019 PROCEDURE: CT Abdomen and Pelvis with contrast HISTORY: right abd pain COMPARISON: 08/28/2013 TECHNIQUE: Contrast dose: 95 mL Omnipaque 300 Radiation dose: Total exam DLP = 766.27 mGy-cm. This CT exam was performed using one or more of the following dose reduction techniques: Automated exposure control, adjustment of the mA and/or kV according to patient size, and/or use of iterative reconstruction technique. FINDINGS: LOWER THORAX: No infiltrate. 5 mm pleural-based nodule in the lateral segment right middle lobe. This is seen on series 5, image 10. As per Fleischner society criteria, no follow-up is required. LIVER: Mild hepatomegaly. The liver measures 20 cm craniocaudal. Diffusely diminished attenuation consistent with fatty infiltration. Smooth contour. No mass. No biliary dilatation. GALLBLADDER AND BILE DUCTS: Cholecystectomy PANCREAS: Unremarkable. No gross lesion or ductal dilatation. SPLEEN: Unremarkable. ADRENALS: Unremarkable. No mass. KIDNEYS AND URETERS: Unremarkable. No hydronephrosis. No solid mass. VASCULATURE: Unremarkable. No aortic aneurysm. No aortic atherosclerotic calcification or mural plaque present. BOWEL: Unremarkable. No obstruction. No gross mural thickening. APPENDIX: Normal appendix. PERITONEUM: Unremarkable. No free fluid. No free air. LYMPH NODES: Unremarkable. No enlarged lymph nodes. BLADDER: Unremarkable. REPRODUCTIVE: Normal uterus BONES: No acute fracture. OTHER FINDINGS: None IMPRESSION: Mild hepatomegaly with diffuse fatty infiltration of the liver. No evidence of appendicitis. Status post cholecystectomy. Otherwise unremarkable examination. The preliminary findings for this examination were reported by [facility] at 4:01 a.m. on 02/16/2019. There is discordance of this report with the preliminary findings. There is no evidence of enterocolitis on this examination.
== END 2019-02-16 08:30 | disposition home or self-care (01) ==
LOC: H.ER 00:32
DX: K52.9 Noninfective gastroenteritis and colitis, unspecified (principal); J45.909 Unspecified asthma, uncomplicated; I10 Essential (primary) hypertension; Z90.49 Acquired absence of other specified parts of digestive tract; Z79.899 Other long term (current) drug therapy
CPT/HCPCS: 74177; 80053; 81025; 83690; 85025; 96365; 99285; J0744; J1885; J2405; J7030; Q9967

== ENCOUNTER 2019-02-24 19:44 | Emergency (ER) | payer MEDICAID ==
[2019-02-24 19:44] VITALS: BMI 35.1
[2019-02-24 20:12] VITALS: BP 150/97; PULSE 89; RESP 18; TEMP 98.2; O2SAT 99
[2019-02-24] MEDS ORDERED: Amoxicillin-Clav 875-125 mg Tab PO STA (20:26)
[2019-02-24] MEDS ORDERED: Amoxicillin-Clav 875-125 mg Tab PO ONE (20:37)
--- NOTE | 2019-02-24 21:03 | ED PDOC ---
HPI: Dental Pain/Injury Time Seen by Provider: 02/24/19 20:16 Chief Complaint (Nursing): Dental Pain Chief Complaint (Provider): Dental Pain History Per: Patient History/Exam Limitations: no limitations Onset/Duration Of Symptoms: Days (x1) Current Symptoms Are (Timing): Still Present Additional Complaint(s): 43 year old female presents to the ED for evaluation of a toothache. Patient reports yesterday while eating, her left upper wisdom tooth cracked causing worsening pain which radiates into her left ear. She states that topical medications have not helped and her dentist cannot see her until next week, but she needs to have it taken out. Otherwise, denies fever, chills, difficulty swallowing, changes in skin color, and drainage. PMD: Teresa Garcia Past Medical History Reviewed: Historical Data, Nursing Documentation, Vital Signs Vital Signs: Last Vital Signs Temp 98.2 F 02/24/19 20:10 Pulse 89 02/24/19 20:10 Resp 18 02/24/19 20:10 BP 150/97 H 02/24/19 20:10 Pulse Ox 99 02/24/19 20:10 - Medical History PMH: Asthma, HTN, Hypercholesterolemia, Rheumatoid Arthritis, Sleep Apnea Denies: Chronic Kidney Disease - Surgical History Surgical History: Cholecystectomy, Other surgeries: hysterectomy - Family History Family History: States: Unknown Family Hx - Social History Current smoker - smoking cessation education provided: No Alcohol: None Drugs: Denies - Immunization History Hx Tetanus Toxoid Vaccination: No Hx Influenza Vaccination: No Hx Pneumococcal Vaccination: No - Home Medications Home Medications: Ambulatory Orders Medication Instructions Recorded Losartan/Hydrochlorothiazide 100 tab PO DAILY 08/15/14 [Hyzaar 100-25 Tablet] Albuterol HFA [Ventolin HFA 90 2 puff IH [id number] #1 inhaler 08/14/18 mcg/actuation (8 g)] Cetirizine HCl [Zyrtec] 10 mg PO DAILY #20 capsule 08/14/18 Metoprolol Tartrate 50 mg PO DAILY 08/14/18 amLODIPine [Norvasc] 10 mg PO DAILY 08/14/18 Ibuprofen [Motrin] 600 mg PO TID 7 Days tab 08/20/18 Loratadine [Claritin] 10 mg PO DAILY #10 tab 11/06/18 predniSONE [Prednisone] 20 mg PO BID #10 tab 11/06/18 Cyclobenzaprine [Flexeril] 10 mg PO TID #27 tab 11/09/18 Albuterol 0.083% [Albuterol 3 ml IH Q8 #1 neb 11/12/18 Sulfate 3 Ml] Non-Formulary 1 ea .ROUTE Q6 #1 ea 11/12/18 Promethazine/Codeine 5 ml PO Q8 #60 ml 11/12/18 [Codeine/Promethazine 10 MG/5 Ml-6.25 MG/5 Ml] metFORMIN [glucOPHAGE] 500 mg PO BID #28 tab 11/22/18 Ciprofloxacin [Cipro] 500 mg PO Q12 #14 tab 02/16/19 Dicyclomine [Bentyl] 20 mg PO Q12 PRN #20 tab 02/16/19 metroNIDAZOLE [Flagyl] 500 mg PO Q12 #14 tab 02/16/19 Amoxicillin/Clavulanate [Augmentin 1 tab PO BID 10 Days #20 tab 02/24/19 875 MG-125 MG] Ibuprofen [Motrin Tab] 600 mg PO Q6 PRN #20 tab 02/24/19 - Allergies Allergies/Adverse Reactions: Allergies Allergy/AdvReac Type Severity Reaction Status Date / Time diazepam [From Valium] Allergy Severe ANGIOEDEMA Verified 02/24/19 20:10 Review of Systems ROS Statement: Except As Marked, All Systems Reviewed And Found Negative Constitutional: Negative for: Fever, Chills ENT: Positive for: Ear Pain (left), Mouth Pain (left upper wisdom tooth pain without drainage). Negative for: Other (difficulty swallowing) Skin: Negative for: Other (changes in skin color) Physical Exam - Reviewed Nursing Documentation Reviewed: Yes Vital Signs Reviewed: Yes - Physical Exam Comments: GENERAL APPEARANCE: Patient is awake, alert, oriented x 3, in obvious mild discomfort SKIN: Warm, dry; (-) cyanosis. ENMT: (-) sinus swelling or tenderness. (+) left upper wisdom tooth cracked and half missing with moderate tenderness to palpation and moderate erythema. No abscess formation or drainage. (-) fluctuance. Pharynx: clear, (-) tongue elevation, (-) exudate. Airway patent: (-) stridor. (-) Submandibular or submental neck swelling (-) pseudomembranes . (-) trismus. No soft tissue swelling or erythema to face. NECK: (-) tenderness, (-) crepitus. - ECG O2 Sat by Pulse Oximetry: 99 (RA) Pulse Ox Interpretation: Normal Medical Decision Making Medical Decision Making: Time: 2025 Initial Impression: Toothache Initial Plan: --Augmentin 1 tab PO --Toradol 30mg IM on re eval pt reports pain is improving, able to tolerate PO discussed results, diagnosis, treatment, return precautions and f/u with pt who is understanding, in agreement and stable for dc Scribe Attestation: Documented by Lakshmi Bill acting as a scribe for Diego Iqbal PA-C. Provider Scribe Attestation: All medical record entries made by the Scribe were at my direction and personally dictated by me. I have reviewed the chart and agree that the record accurately reflects my personal performance of the history, physical exam, medical decision making, and the department course for this patient. I have also personally directed, reviewed, and agree with the discharge instructions and disposition. Disposition - Clinical Impression Clinical Impression: Tooth infection, Cracked tooth - Patient ED Disposition Is Patient to be Admitted: No Counseled Patient/Family Regarding: Studies Performed, Diagnosis, Need For Followup, Rx Given - Disposition Referrals: your, dentist [Other] Teresa Garcia MD [Primary Care Provider] - Disposition: Routine/Home Disposition Time: 21:06 Condition: IMPROVED Additional Instructions: Return to ED for new or worsening symptoms. Take medications as prescribed. FOllow up with your dentist as soon as possible Thank you for letting us take care of you today. You were treated for tooth infection. The emergency medical care you received today was directed at your acute symptoms. If you were prescribed any medication, please fill it and take as directed. It may take several days for your symptoms to resolve. Return to the Emergency Department if your symptoms worsen, do not improve, or if you have any other problems. Please contact your doctor in 2 days for re-evaluation and follow up / or call one of the physicians/clinics you have been referred to that are listed on the Patient Visit Information form that is included in your discharge packet. Bring any paperwork you were given at discharge with you along with any medications you are taking to your follow up visit. Our treatment cannot replace ongoing medical care by a primary care provider (PCP) outside of the emergency department. Prescriptions: Amoxicillin/Clavulanate [Augmentin 875 MG-125 MG] 1 tab PO BID 10 Days #20 tab Ibuprofen [Motrin Tab] 600 mg PO Q6 PRN #20 tab PRN Reason: Pain, Moderate (4-7) Instructions: Fractured Tooth (DC), Dental Pain (DC) Forms: [facility] (Indonesian) Print Language: LEBANESE - POA Present On Arrival: None
== END 2019-02-24 21:14 | disposition home or self-care (01) ==
LOC: H.ER 19:44
DX: K04.7 Periapical abscess without sinus (principal); K03.81 Cracked tooth; E78.00 Pure hypercholesterolemia, unspecified; I10 Essential (primary) hypertension; Z79.84 Long term (current) use of oral hypoglycemic drugs
CPT/HCPCS: 81025; 96372; 99282; J1885